=== PATIENT | female | born 1940 | race Caucasian/White ===

== ENCOUNTER → 2017-02-13 | Outpatient (CLI) | payer MEDICARE, OTHER ==
[~2017-02-13] MED LIST: ACTONEL; ASPIRIN PO; ASPIRINEC PO; B COMPLEX1 CA1 PO; BP PILL; CALCIUM 600 +1 EAC3 PO; CARVEDILOL3.125 MG PO; CERTAGEN PO; FISH OIL 1,0001 CAP PO; FISH OIL 1,0001 EACH PO; KROGER; LISINOPRIL PO; LISINOPRIL10 MG PO; LORTAB 10-5001 EACH PO; MULTIPLE VITAMI1 T11; MULTIPLE VITAMI1 T12 PO; NEPHROCAPS CAPSU1 MG PO; NIACIN PO; OMEGA 3 FISH1 CAP.EC PO; SIMVASTATIN10 MG PO; STOOL SOFTENER100 M1 PO; VICODIN 5/500 T1 TAB PO; VITAMIN D-32000 UNIT PO; [UNRECOGNIZED DRUG - OTHER]; [UNRECOGNIZED DRUG - OTHER] PO
== END | disposition home or self-care (01) ==
LOC: CECH 13:17
DX: I38 Endocarditis, valve unspecified (principal); I51.7 Cardiomegaly; I35.2 Nonrheumatic aortic (valve) stenosis with insufficiency; I37.1 Nonrheumatic pulmonary valve insufficiency
CPT/HCPCS: 93306